=== PATIENT | male | born 1980 | race Caucasian/White ===

== ENCOUNTER 2017-09-17 21:30 | Emergency (ER) | payer OTHER ==
[~2017-09-17] VITALS: Ht 188 cm; Wt 95.0 kg
[~2017-09-17 21:30] MED LIST: CYCL-36 PO
[2017-09-17 21:44] VITALS: BP 137/90; PULSE 50; RESP 22; TEMP 98; O2SAT 100
[2017-09-17 21:54] VITALS: O2SAT 98
[2017-09-17] MEDS ORDERED: SODIUM CHLORIDE 0.9% FLUSH 10 ML FLUSH IVF PRN (22:00)
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
[2017-09-17] MEDS ORDERED: ONDANSETRON HCL 4 MG/2 ML VIAL IV PUSH ONE (22:15)
[2017-09-17] MEDS ORDERED: HYDROmorphone HCL PF 2 MG/ML VIAL IVS ONE (22:15)
[2017-09-17 22:33] LABS: BASOPHIL # 0.1 TH/MM3 (0-0.2); BASOPHIL % 0.9 % (0.0-2.0); EOSINOPHIL # 0.3 TH/MM3 (0-0.4); EOSINOPHIL % 2.4 % (0.0-4.0); HEMATOCRIT 43.4 % (39.0-51.0); HEMOGLOBIN 15.2 GM/DL (13.0-17.0); LYMPH % 35.2 % (9.0-44.0); LYMPHOCYTE # 3.9 TH/MM3 (1.0-4.8); MEAN CELL VOLUME 92.5 FL (80.0-100.0); MEAN CORPUSCULAR HEMOGLOBIN 32.3 PG (27.0-34.0); MEAN CORPUSCULAR HGB CONC 34.9 % (32.0-36.0); MEAN PLATELET VOLUME 8.2 FL (7.0-11.0); MONO % 7.7 % (0.0-8.0); MONOCYTE # 0.9 TH/MM3 (0-0.9); NEUT % 53.8 % (16.0-70.0); PLATELET COUNT 288 TH/MM3 (150-450); RED BLOOD COUNT 4.69 MIL/MM3 (4.50-5.90); RED CELL DISTRIBUTION WIDTH 13.2 % (11.6-17.2); WHITE BLOOD COUNT 11.2 TH/MM3 (4.0-11.0)
[2017-09-17 22:51] LABS: BLOOD UREA NITROGEN 10 MG/DL (7-18); CALCIUM 9.5 MG/DL (8.5-10.1); CHLORIDE 104 MEQ/L (98-107); CREATININE 1.16 MG/DL (0.60-1.30); GLOMERULAR FILTRATION RATE 70 ML/MIN (>89); GLUCOSE,RANDOM 312 MG/DL (74-106); SODIUM (NA) 140 MEQ/L (136-145)
[2017-09-17 22:56] LABS: PROTHROMBIN TIME - PATIENT 10.3 SEC (9.8-11.6)
[2017-09-17] MEDS ORDERED: IOHEXOL 350 MG/ML 10 ML VIAL (for RAD DIAG) IVCONTRAST ONE (23:22)
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
[2017-09-18] MEDS ORDERED: PERC10TA27 PO (00:02)
[2017-09-18] MEDS ORDERED: MIRA3350 PO (00:02)
[2017-09-18] MEDS ORDERED: diphenhydrAMINE HCL 50 MG/ML VIAL ONE (00:12)
[2017-09-18 00:23] VITALS: BP 117/75; PULSE 55; RESP 18; O2SAT 98
[2017-09-18] MEDS ORDERED: HYDROmorphone HCL PF 1 MG/ML VIAL IV PUSH ONE (00:30)
[2017-09-18] MEDS ORDERED: HYDROmorphone HCL PF 2 MG/ML VIAL IV PUSH ONE (00:45)
== END 2017-09-18 00:42 | disposition home or self-care (01) ==
LOC: NEPE 21:30
DX: S22.20XA Unspecified fracture of sternum, initial encounter for closed fracture (principal); V49.49XA Driver injured in collision with other motor vehicles in traffic accident, initial encounter; Y92.414 Local residential or business street as the place of occurrence of the external cause; F17.210 Nicotine dependence, cigarettes, uncomplicated
CPT/HCPCS: 70450; 71260; 72125; 74177; 80048; 80307; 85025; 85610; 85730; 96374; 96375; 96376; 99284; J1170; J1200; J2405; Q9967

== ENCOUNTER 2017-09-20 14:00 | Emergency (ER) | payer OTHER ==
[~2017-09-20] VITALS: Ht 190.5 cm; Wt 90.5 kg
[~2017-09-20 14:00] MED LIST changes: -CYCL-36 PO; +MIRA3350 PO; +PERC10TA27 PO
[2017-09-20 14:03] VITALS: BP 149/91; PULSE 68; RESP 18; TEMP 97.8; O2SAT 99
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
[2017-09-20] MEDS ORDERED: PERC10TA27 PO (15:07)
[2017-09-20] MEDS ORDERED: KETO10 PO (15:07)
[2017-09-20] MEDS ORDERED: IBUPROFEN 600 MG TAB PO ONE (15:30)
[2017-09-20] MEDS ORDERED: oxyCODONE/ACETAMINOPHEN 5 MG/325 MG TAB PO ONE (15:30)
== END 2017-09-20 15:33 | disposition home or self-care (01) ==
LOC: NEPK 14:00
DX: S22.22XD Fracture of body of sternum, subsequent encounter for fracture with routine healing (principal); X58.XXXD Exposure to other specified factors, subsequent encounter
CPT/HCPCS: 99283

== ENCOUNTER 2017-12-02 19:39 | Emergency (ER) | payer SELFPAY ==
[~2017-12-02 19:39] MED LIST changes: +KETO10 PO
[2017-12-02 19:58] VITALS: BP 138/67; PULSE 77; RESP 18; TEMP 98.4; O2SAT 100
[2017-12-02 20:07] VITALS: BP 137/79; PULSE 72; RESP 18; O2SAT 93
[2017-12-02] MEDS ORDERED: VANCOMYCIN INJ 1,000 MG in SODIUM CHLOR 0.9% 250 ML INJ 250 ML IV ONE (20:30)
--- NOTE | 2017-12-02 20:31 | PD ---
HPI Chief Complaint: Bite or Sting Time Seen by Provider: 20:07 Travel History International Travel<30 days: No Contact w/Intl Traveler<30days: No Traveled to known affect area: No History of Present Illness HPI Patient presents to the emergency department reporting left arm spider bite 1 week. He did not see the spider but thinks that he was bitten by a spider reported same thing happened on his right hand, which took approximately 6 weeks to heal. 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 He denies fever, chills, chest pain, shortness of breath, nausea, vomiting. Reports that the infection has spread. This is his first medical evaluation for this complaint, but he advises that he used Neosporin and peroxide to clean the wound. Reports that when he squeezed the wound he noticed clear drainage. Of note patient is a drug user, states that he takes ecstasy pills and stores cocaine. He denies IV drug use. Last used 1 week ago. PFSH Past Medical History Anxiety: Yes Cancer: No Diabetes: No Diminished Hearing: No Glaucoma: No Hepatitis: No Hiatal Hernia: No Hypertension: No Respiratory: Yes (RECURRENT BRONCHITIS) Immunizations Current: Yes Thyroid Disease: No Past Surgical History Abdominal Surgery: No Cardiac Surgery: No Ear Surgery: No Endocrine Surgery: No Eye Surgery: No Genitourinary Surgery: No Gynecologic Surgery: No Hysterectomy: No Oral Surgery: Yes (WISDOM TEETH EXTRACTION FROM BOTTOM OF MOUTH) Pacemaker: No Thoracic Surgery: No Other Surgery: Yes Social History Alcohol Use: Yes (OCC) Tobacco Use: Yes (1 PPD) Substance Use: Yes (MARIJUANA, COCAINE, ecstacy) Allergies-Medications (Allergen,Severity, Reaction): Coded Allergies: codeine (Unverified Allergy, Mild, 12/02/17) Reported Meds & Prescriptions Reported Meds & Active Scripts Active Bactrim DS (Sulfamethoxazole-Trimethoprim) 800-160 Mg Tab 1 Tab PO BID 10 Days Review of Systems Except as stated in HPI: all other systems reviewed are Neg Physical Exam Narrative GENERAL: No acute distress. SKIN: Focused skin assessment warm/dry.4x6 cm, erythematous, tender to palpation , fluctuant area distal L forearm. HEAD: Atraumatic. Normocephalic. EYES: Extraocular muscles intact bilaterally. No scleral icterus. No injection or drainage. ENT: No nasal bleeding or discharge. NECK: Trachea midline. No JVD. CARDIOVASCULAR: Regular rate and rhythm. No murmur appreciated. RESPIRATORY: No accessory muscle use. Clear to auscultation. Breath sounds equal bilaterally. GASTROINTESTINAL: Abdomen soft, non-tender, nondistended. MUSCULOSKELETAL: see skin above NEUROLOGICAL: Awake and alert. No obvious cranial nerve deficits. Motor grossly within normal limits (LUE ROM limited 2/2 pain). Normal speech. M/R/U nerve intact in LUE, sensation intact, 2+ R pulse. PSYCHIATRIC: Appropriate mood and affect; insight and judgment normal. Data Data Last Documented VS Vital Signs Date Time Temp Pulse Resp B/P (MAP) Pulse Ox O2 Delivery O2 Flow Rate FiO2 12/02/17 20:07 72 18 137/79 (98) 93 Room Air 12/02/17 19:58 98.4 Orders Orders Complete Blood Count With Diff (12/02/17 20:19) Comprehensive Metabolic Panel (12/02/17 20:19) Prothrombin Time / Inr (Pt) (12/02/17 20:19) Act Partial Throm Time (Ptt) (12/02/17 20:19) Blood Culture (12/02/17 20:19) Iv Access Insert/Monitor (12/02/17 20:19) Ecg Monitoring (12/02/17 20:19) Forearm (2vws) (12/02/17 20:19) Vancomycin Inj (Vancomycin Inj) (12/02/17 20:30) Us Arm Soft Tissue (12/02/17 20:19) Abscess Culture And Gram Stain (12/02/17 22:45) Lidocaine Pf 1% Inj (Xylocaine-Mpf 1% In (12/02/17 22:45) Ondansetron Inj (Zofran Inj) (12/02/17 23:00) Labs Laboratory Tests Test 12/02/17 20:26 White Blood Count 11.3 TH/MM3 Red Blood Count 5.39 MIL/MM3 Hemoglobin 17.4 GM/DL Hematocrit 49.8 % Mean Corpuscular Volume 92.4 FL Mean Corpuscular Hemoglobin 32.3 PG Mean Corpuscular Hemoglobin Concent 35.0 % Red Cell Distribution Width 13.1 % Platelet Count 266 TH/MM3 Mean Platelet Volume 8.8 FL Neutrophils (%) (Auto) 61.1 % Lymphocytes (%) (Auto) 27.2 % Monocytes (%) (Auto) 9.6 % Eosinophils (%) (Auto) 1.6 % Basophils (%) (Auto) 0.5 % Neutrophils # (Auto) 6.9 TH/MM3 Lymphocytes # (Auto) 3.1 TH/MM3 Monocytes # (Auto) 1.1 TH/MM3 Eosinophils # (Auto) 0.2 TH/MM3 Basophils # (Auto) 0.1 TH/MM3 CBC Comment DIFF FINAL Differential Comment Prothrombin Time 10.2 SEC Prothromb Time International Ratio 1.0 RATIO Activated Partial Thromboplast Time 24.2 SEC Blood Urea Nitrogen 9 MG/DL Creatinine 1.14 MG/DL Random Glucose 73 MG/DL Total Protein 8.3 GM/DL Albumin 4.2 GM/DL Calcium Level 9.6 MG/DL Alkaline Phosphatase 116 U/L Aspartate Amino Transf (AST/SGOT) 25 U/L Alanine Aminotransferase (ALT/SGPT) 18 U/L Total Bilirubin 1.1 MG/DL Sodium Level 141 MEQ/L Potassium Level 3.9 MEQ/L Chloride Level 109 MEQ/L Carbon Dioxide Level 25.4 MEQ/L Anion Gap 7 MEQ/L Estimat Glomerular Filtration Rate 72 ML/MIN MDM Medical Decision Making Medical Screen Exam Complete: Yes Emergency Medical Condition: Yes Differential Diagnosis Cellulitis, abscess, foreign body reaction, DVT Narrative Course Patient presents to the emergency department with left upper extremity swelling and erythema reportedly due to a spider bite. Will check coags, CBC, chemistry , blood cultures, x-ray, and ultrasound. Patient given 1 g IV vancomycin. 2325: Patient is a drug user but denies IV drug use. I wanted to admit patient for IV antibiotics, but he refuses. States that he has to be at work in the morning and he needs the money. We will discharged with Bactrim p.o. DS twice daily 10 days. Blood cultures and wound cultures have been sent. He is alert and oriented has decision-making capacity. And is leaving against my medical advice. Procedures Procedure Narrative I&D was done by mid-level provider. Please see her note. Diagnosis Primary Impression: Abscess Additional Impression: Cellulitis Qualified Codes: L03.114 - Cellulitis of left upper limb Patient Instructions: Abscess Incision and Drainage (GEN), Cellulitis (ED), General Instructions Med/Other Pt SpecificInfo: Prescription(s) given Scripts Sulfamethoxazole-Trimethoprim (Bactrim DS) 800-160 Mg Tab 1 TAB PO BID for Infection for 10 Days, #20 TAB 0 Refills Prov: Anna Funes MD 12/02/17 Disposition: 07 AGAINST MEDICAL ADVICE Condition: Stable Anna Funes MD December 02, 2017 20:31
--- NOTE | 2017-12-02 20:38 | RADRPT ---
EXAM DATE/TIME: 12/02/2017 20:25 [facility] COMPARISON: No previous studies available for comparison. INDICATIONS : Left forearm spider bite. MEDICAL HISTORY : None. SURGICAL HISTORY : None. ENCOUNTER: Initial ACUITY: 4 - 6 days PAIN SCORE: 10/10 LOCATION: Left medial forearm. FINDINGS: Two view examination of the left forearm demonstrates no evidence of fracture or dislocation. Bony m ineralization is normal. The soft tissue structures are prominent. CONCLUSION: Soft tissue swelling without fracture. Lavell Love MD on December 02, 2017 at 20:36 Board Certified Radiologist. This report was verified electronically.
[2017-12-02 21:00] LABS: AUTOMATED NEUTROPHIL # 6.9 TH/MM3 (1.8-7.7); BASOPHIL # 0.1 TH/MM3 (0-0.2); BASOPHIL % 0.5 % (0.0-2.0); EOSINOPHIL # 0.2 TH/MM3 (0-0.4); EOSINOPHIL % 1.6 % (0.0-4.0); HEMATOCRIT 49.8 % (39.0-51.0); HEMOGLOBIN 17.4 GM/DL (13.0-17.0); LYMPH % 27.2 % (9.0-44.0); LYMPHOCYTE # 3.1 TH/MM3 (1.0-4.8); MEAN CELL VOLUME 92.4 FL (80.0-100.0); MEAN CORPUSCULAR HEMOGLOBIN 32.3 PG (27.0-34.0); MEAN PLATELET VOLUME 8.8 FL (7.0-11.0); MONO % 9.6 % (0.0-8.0); MONOCYTE # 1.1 TH/MM3 (0-0.9); NEUT % 61.1 % (16.0-70.0); PLATELET COUNT 266 TH/MM3 (150-450); RED BLOOD COUNT 5.39 MIL/MM3 (4.50-5.90); RED CELL DISTRIBUTION WIDTH 13.1 % (11.6-17.2); WHITE BLOOD COUNT 11.3 TH/MM3 (4.0-11.0)
[2017-12-02 21:10] LABS: PROTHROMBIN TIME - PATIENT 10.2 SEC (9.8-11.6)
[2017-12-02 21:21] LABS: ALBUMIN 4.2 GM/DL (3.4-5.0); ALT (GPT) 18 U/L (12-78); AST (GOT) 25 U/L (15-37); BICARBONATE 25.4 MEQ/L (21.0-32.0); BLOOD UREA NITROGEN 9 MG/DL (7-18); CALCIUM 9.6 MG/DL (8.5-10.1); CHLORIDE 109 MEQ/L (98-107); CREATININE 1.14 MG/DL (0.60-1.30); GLOMERULAR FILTRATION RATE 72 ML/MIN (>89); GLUCOSE,RANDOM 73 MG/DL (74-106); SODIUM (NA) 141 MEQ/L (136-145)
[2017-12-02 21:23] LABS: ALKALINE PHOSPHATASE 116 U/L (45-117); TOTAL BILIRUBIN ADULT 1.1 MG/DL (0.2-1.0); TOTAL PROTEIN 8.3 GM/DL (6.4-8.2)
--- NOTE | 2017-12-02 21:55 | RADRPT ---
EXAM DATE/TIME: 12/02/2017 21:40 [facility] COMPARISON: No previous studies available for comparison. INDICATIONS : Evaluate for fluid collection. Spider bite. MEDICAL HISTORY : Anxiety. Tobacco use. Bronchitis. SURGICAL HISTORY : [place] teeth removed. Right hand surgery. ENCOUNTER: Initial ACUITY: 1 week PAIN SCORE: 4/10 LOCATION: Left arm. AREA EVALUATED: Left forearm. FINDINGS: Target sonogram along the medial left forearm demonstrates small superficial complex fluid collection measuring 2.8 x 1.3 x 1.8 cm. Diffuse soft tissue swelling. There is increased flow. CONCLUSION: Small superficial abscess left forearm. aLvell Love MD on December 02, 2017 at 21:52 Board Certified Radiologist. This report was verified electronically.
[2017-12-02] MEDS ORDERED: LIDOCAINE HCL 1% PF 30 ML VIAL INFIL ONE (22:45)
--- NOTE | 2017-12-02 22:48 | PD ---
Physical Exam Date Seen by Provider: December 02, 2017 Time Seen by Provider: 22:46 Data Data Last Documented VS Vital Signs Date Time Temp Pulse Resp B/P (MAP) Pulse Ox O2 Delivery O2 Flow Rate FiO2 12/02/17 20:07 72 18 137/79 (98) 93 Room Air 12/02/17 19:58 98.4 Orders Orders Complete Blood Count With Diff (12/02/17 20:19) Comprehensive Metabolic Panel (12/02/17 20:19) Prothrombin Time / Inr (Pt) (12/02/17 20:19) Act Partial Throm Time (Ptt) (12/02/17 20:19) Blood Culture (12/02/17 20:19) Iv Access Insert/Monitor (12/02/17 20:19) Ecg Monitoring (12/02/17 20:19) Forearm (2vws) (12/02/17 20:19) Vancomycin Inj (Vancomycin Inj) (12/02/17 20:30) Us Arm Soft Tissue (12/02/17 20:19) Abscess Culture And Gram Stain (12/02/17 22:45) Lidocaine Pf 1% Inj (Xylocaine-Mpf 1% In (12/02/17 22:45) Labs Laboratory Tests Test 12/02/17 20:26 White Blood Count 11.3 TH/MM3 Red Blood Count 5.39 MIL/MM3 Hemoglobin 17.4 GM/DL Hematocrit 49.8 % Mean Corpuscular Volume 92.4 FL Mean Corpuscular Hemoglobin 32.3 PG Mean Corpuscular Hemoglobin Concent 35.0 % Red Cell Distribution Width 13.1 % Platelet Count 266 TH/MM3 Mean Platelet Volume 8.8 FL Neutrophils (%) (Auto) 61.1 % Lymphocytes (%) (Auto) 27.2 % Monocytes (%) (Auto) 9.6 % Eosinophils (%) (Auto) 1.6 % Basophils (%) (Auto) 0.5 % Neutrophils # (Auto) 6.9 TH/MM3 Lymphocytes # (Auto) 3.1 TH/MM3 Monocytes # (Auto) 1.1 TH/MM3 Eosinophils # (Auto) 0.2 TH/MM3 Basophils # (Auto) 0.1 TH/MM3 CBC Comment DIFF FINAL Differential Comment Prothrombin Time 10.2 SEC Prothromb Time International Ratio 1.0 RATIO Activated Partial Thromboplast Time 24.2 SEC Blood Urea Nitrogen 9 MG/DL Creatinine 1.14 MG/DL Random Glucose 73 MG/DL Total Protein 8.3 GM/DL Albumin 4.2 GM/DL Calcium Level 9.6 MG/DL Alkaline Phosphatase 116 U/L Aspartate Amino Transf (AST/SGOT) 25 U/L Alanine Aminotransferase (ALT/SGPT) 18 U/L Total Bilirubin 1.1 MG/DL Sodium Level 141 MEQ/L Potassium Level 3.9 MEQ/L Chloride Level 109 MEQ/L Carbon Dioxide Level 25.4 MEQ/L Anion Gap 7 MEQ/L Estimat Glomerular Filtration Rate 72 ML/MIN [facility] Supervised Visit with KALLI: No Narrative Course I was asked to I&D this patient's forearm abscess. On exam: SKIN: There is an indurated area in the left forearm which measures about 4cm in diameter. It is fluctuant but there is no pointing or drainage. There is a zone of inflammation around it but no lymphangitis. Abscess I&D was performed. Please see my procedure note for details. Dr. Funes retains care of this patient. Please see her note for disposition. Procedures Procedure Narrative INCISION AND DRAINAGE OF ABSCESS: The area was prepped and was sterilely draped. A subcutaneous wheal of 1% Xylocaine with a total number 3 mL was used to anesthetize the area properly. A number 11 scalpel was used to make a 1-cm incision across the area of the abscess. The abscess was drained, complex loculations were broken down, and irrigated with normal saline. Cultures were obtained. Sterile dressing applied. Patient advised to keep the wound clean and dry. Leti Suarez December 02, 2017 22:48
[2017-12-02] MEDS ORDERED: ONDANSETRON HCL 4 MG/2 ML VIAL IV PUSH ONE (23:00)
[2017-12-02] MEDS ORDERED: BACT800T5 PO (23:23)
== END 2017-12-02 23:50 | disposition left against medical advice (07) ==
LOC: NEPC 19:39
DX: L02.414 Cutaneous abscess of left upper limb (principal)
CPT/HCPCS: 10060; 73090; 76882; 80053; 85025; 85610; 85730; 86403; 87040; 87070; 87186; 87205; 96365; 96366; 96375; 99284; J2405; J3370; J7050